=== PATIENT | male | born 1950 | race African-American/Black ===

== ENCOUNTER 2023-03-26 08:21 | Outpatient (REF) | payer OTHER, SELFPAY ==
[2023-03-26 11:32] LABS: MANUAL DIFF FLAG NO
[2023-03-26 11:41] LABS: Basophils Percent Auto 0.6 % (0-2); Eosinophils Absolute Auto 0.1 X10*3/uL (0.0-0.4); Eosinophils Percent Auto 1.7 % (0-4); Hematocrit 47.9 % (42.0-52.0); Hemoglobin 14.4 g/dl (14.0-18.0); Imm Gran Abs Auto 0.01 X10*3/uL (0.00-0.03); Imm Gran Pct Auto 0.1 % (0.0-0.4); Lymphocytes Absolute Auto 3.7 X10*3/uL (1.2-4.9); Lymphocytes Percent Auto 53.6 % (20-40); Mean Corpuscular HGB Conc 30.1 g/dl (31.0-36.0); Mean Corpuscular Hemoglobin 26.4 pg (27.0-33.0); Mean Corpuscular Volume 87.7 fL (80.0-98.0); Mean Platelet Volume 12.9 fL (9.4-12.4); Monocytes Absolute Auto 0.5 X10*3/uL (0.1-1.2); Monocytes Percent Auto 7.1 % (2-11); Neutrophils Absolute Auto 2.5 x10*3/uL (2.0-8.3); Neutrophils Percent Auto 36.9 % (45-73); Platelet Count 181 X10*3/uL (160-400); Red Blood Count 5.46 X10*6/uL (4.60-5.80); Red Cell Distribution Width 14.9 % (11.0-16.0); White Blood Count 6.9 X10*3/uL (4.8-10.8)
[2023-03-26 12:33] LABS: Microalbum/Creatinine Ratio Ur 21.1 ug/mg cr
[2023-03-26 13:16] LABS: Alanine Aminotransferase 13 U/L (0-40); Albumin Level 4.2 g/dL (3.5-5.0); Alkaline Phosphatase 56 U/L (39-117); Anion Gap 12 (12-20); Aspartate Amino Transferase 15 U/L (5-37); Bilirubin Total 0.9 mg/dL (0.0-1.0); Blood Urea Nitrogen 16 mg/dL (9-16); Calcium 9.7 mg/dL (8.4-10.2); Carbon Dioxide 31 mmol/L (22-29); Chloride 105 mmol/L (96-108); Cholesterol 141 mg/dL; Estimated Glomerular Filt Rate > 60; Glucose Fasting 117 mg/dL (60-99); HDL Cholesterol 46 mg/dL; LDL Cholesterol Calculated 78 mg/dl; Sodium 143 mmol/L (135-145); Total Protein 7.7 g/dL (6.5-8.0); Triglycerides 86 mg/dL
[2023-03-26 13:32] LABS: Vitamin D 25-OH Total 10.4 ng/mL (>30)
[2023-03-29 12:23] LABS: Free Prostate Spec Ag 1.4 ng/mL; Percent Free Prostate Spec Ag 29 % (calc) (>25); Prostate Specific Ag Total 4.9 ng/mL (< OR = 4.0)
== END 2023-03-26 08:22 | disposition home or self-care (01) ==
LOC: HO.HMGCLDS 08:21
PROVIDERS: PCP Internal Medicine; Visit Provider Internal Medicine
DX: Z12.5 Encounter for screening for malignant neoplasm of prostate (principal); D12.6 Benign neoplasm of colon, unspecified; E11.9 Type 2 diabetes mellitus without complications; E78.5 Hyperlipidemia, unspecified; I10 Essential (primary) hypertension; I25.10 Atherosclerotic heart disease of native coronary artery without angina pectoris; I25.2 Old myocardial infarction; Z95.5 Presence of coronary angioplasty implant and graft
CPT/HCPCS: 36415; 80053; 80061; 82043; 82306; 84153; 84154; 85025

== ENCOUNTER 2023-05-28 11:24 | Outpatient (AMB) | payer OTHER, SELFPAY ==
[2023-05-28 11:28] VITALS: BP 132/80; PULSE 58; O2SAT 98; BMI 27.2
--- NOTE | 2023-05-28 11:28 | MHC.PC.OV ---
Vital Signs 05/28/23 11:28 Height 6 ft 3 in Weight 218 lb BMI 27.2 BP 132/80 Blood Pressure Location Lt brachial Position Sitting Pulse 58 Pulse Source Pulse Oximeter Pulse Oximetry (%) 98 Oxygen Delivery Method Room Air Intake Visit Reasons: 3 months f/u labs Intake Note: patient is here today for a 3mo. f/u Allergies No Known Allergies Allergy (Verified 05/28/23 12:08) Medication List - Last Reconciled 05/28/23 by Alta Rausch MD aspirin 325 mg PO DAILY atorvastatin 80 mg PO DAILY carvedilol 25 mg PO BID 90 days diclofenac sodium 1% grams topical Jardiance (empagliflozin) 25 mg PO QAM NS lisinopril-hydrochlorothiazide 20-12.5 mg 2 tabs PO DAILY 90 days metformin 1,000 mg PO BID 90 days Tobacco use date assessed: 05/28/23 Fall risk assessment: No Falls in past year Last assessed Fall Risk: 05/28/23 Dental Screening Dental Screen Date: 05/28/23 Did you have a dental visit in the last 12 months?: No Did you have a dental problem in the last 6 months where you did not have access to dental care?: No Was dental information given to patient?: No HPI 3 months f/u labs HPI Details 72-year-old male with coronary artery disease status post stent to LAD, hypertension, diabetes mellitus, hyperlipidemia, here today for follow-up. He has been compliant with taking his medications, and tries to follow recommended diet. He has arthritis in his left knee, needs a prescription refill for his diclofenac gel, which he uses twice a day as needed. He is overdue to get his repeat colonoscopy, but checked with his insurance and states that he has had 250 dollar co-pay and patient states that he cannot afford it at present time. He is also overdue for a diabetes eye screen and for follow-up regarding his glaucoma, but has a hard time finding an eye doctor that takes his insurance. [facility] Medical History (Updated 06/10/23 @ 03:15 by Alta Rausch MD) Left knee pain Vitamin D deficiency Essential hypertension Diabetes mellitus Tubular adenoma of colon Hyperlipidemia Glaucoma History of positive PPD History of non-ST elevation myocardial infarction (NSTEMI) Coronary artery disease Surgical History History of heart artery stent Social History Housing: House Patient Tobacco Use Status: Never used Tobacco e-Cigarette/Vaping Use: Never Used Current occupational status: retired Cognitive needs: No Hearing needs: No Vision needs: Yes Questionnaire Thrive Questionnaire Date Thrive assessed: 12/26/22 AUDIT C Alcohol Use Questionnaire (AUDIT-C) 1. How often do you have a drink containing alcohol?: Monthly or less 2. How many drinks containing alcohol do you have on a typical day when you are drinking?: 1 or 2 Total Score: 1 SHELIA-7 AMB Questionnaire SHELIA-7 Date SHELIA - 7 assessed: 12/26/22 Source: Developed by Drs. Jeremi Abernathy, Mary Felipe, Devang Cooper and colleagues, with an educational jake from [employer]. Review of Systems Const Denies fatigue, Denies fever(s), Denies headache(s) and Denies weakness Eyes Reports blurry vision ENT Denies dizziness, Denies headache(s), Denies nasal congestion, Denies nasal discharge and Denies sore throat Card Denies chest pain, Denies lightheadedness, Denies palpitations and Denies dyspnea Resp Denies chest congestion, Denies cough, Denies dyspnea and Denies wheezing GI Denies abdominal pain, Denies change in bowel habits and Denies heartburn Denies hematuria, Denies difficulty urinating, Denies dysuria, Denies urinary frequency and Denies urinary urgency Musc Details: Gets recurrent left knee pain, with no joint swelling Skin/Breast Denies breast pain, Denies breast mass, Denies lesions and Denies rash Neuro Denies dizziness, Denies headache(s) and Denies weakness Psych Reports no additional complaints Endo Denies fatigue, Denies polydipsia, Denies polyuria and Denies palpitations Edward/Lymph Denies easy bruising Aller/Immun Denies seasonal rhinorrhea and Denies wheezing Physical exam (Primary Care) Vital Signs: Last Vital Signs Pulse 58 05/28/23 11:28 BP 132/80 05/28/23 11:28 Pulse Ox 98 05/28/23 11:28 Oxygen Delivery Method Room Air 05/28/23 11:28 BMI result Body Mass Index 27.2 Tobacco/Smoking Status: Tobacco use Status Tobacco use date assessed 05/28/23 05/28/23 11:30 Patient Tobacco Use Status Never used Tobacco 05/28/23 11:30 e-Cigarette/Vaping Use Never Used 05/28/23 11:30 Thrive Assessment: Date of Thrive Assessment Date Thrive assessed 12/26/22 05/28/23 11:30 Const Other: Alert oriented x3, no acute distress noted, ambulatory normal gait Orientation/consciousness: patient oriented x3 HENMT Head: Yes normocephalic Ears: hearing grossly normal bilaterally General nose exam: Normal external nose present Face and sinus: Yes face symmetric Mouth: Normal oral and palatal mucosa present, oropharynx normal and moist mucous membranes Eyes General: appearance normal, both eyes and all related structures Pupils: Equal, round and reactive pupils present EOM: EOMs intact bilaterally Neck Neck: Yes full ROM, Yes no lymphadenopathy and Yes supple Resp Auscultation: clear to auscultation bilaterally Cardio Other: S1-S2 present regular rate and rhythm GI Palpation (GI): Soft to palpation, nontender and no guarding Auscultation: normal bowel sounds Skin General skin exam: no rashes or lesions noted Neuro General: patient oriented x3, gait normal, moves all extremities and no focal motor deficits Cranial nerves: Yes Equal, round and reactive pupils present Extrem General: Yes full ROM, Yes no joint enlargement, Yes no pedal edema and Yes normal gait Psych Appearance: grossly normal and well kempt Mental Status: mental status grossly normal Affect: normal affect Thought process: Normal thought process present Thought content: Normal thought content present Immunizations pneumoc 20-jeanne conj-dip cr(PF) 0.5 mL IM syringe Performing Provider: Alta Rausch MD Performing Location: [facility] Administered by: Delma Davis CMA on 05/28/23 12:25 Dose Route Admin Location Dispensed Lot Number Expiration Date [employer] 0.5 mL IM Left Deltoid 0.5 mL [id number] 06/18/24 [id number] [employer]! VIS Given Date VIS Provided VIS Publication Date 05/28/23 Single Vaccine 21 Eligibility Eligibility Date Funding Source Not [facility] Eligible 05/28/23 Private Assessment and Plan Assessment & Plan (1) Essential hypertension: Code(s): I10 - Essential (primary) hypertension Plan: Blood pressure at goal of less than 130/80. Continue with carvedilol 25 mg 1 tablet twice a day and lisinopril HCTZ 20-12.5 2 tablets daily. Reinforced importance of following a low sodium diet, getting regular exercise, and lowering stress levels. (2) Diabetes mellitus: Code(s): E11.9 - Type 2 diabetes mellitus without complications Qualifiers: Diabetes mellitus complication status: without complication Diabetes mellitus extermination supervisor insulin use: without extermination supervisor use Diabetes mellitus type: type 2 Qualified Code(s): E11.9 - Type 2 diabetes mellitus without complications Plan: Ordered hemoglobin A1c, continue with Jardiance, and metformin. Will refer to Ophthalmology for his diabetes retinopathy screening and for follow-up of glucos. Prevnar 20 given today (3) History of non-ST elevation myocardial infarction (NSTEMI): Comment: 08/2014 received a bare metal stent in the proximal LAD Code(s): I25.2 - Old myocardial infarction Plan: Continue aspirin, stressed importance of getting hypertension, diabetes mellitus and dyslipidemia in good control with a goal LDL cholesterol less than 70 mg/dL (4) Coronary artery disease: Code(s): I25.10 - Atherosclerotic heart disease of [place] coronary artery without angina pectoris Qualifiers: Associated angina: without angina Coronary Disease-Associated Artery/Lesion type: [place] artery [place] vs. transplanted heart: [place] heart Qualified Code(s): I25.10 - Atherosclerotic heart disease of [place] coronary artery without angina pectoris Plan: Continued on aspirin 325 mg daily (5) Hyperlipidemia: Code(s): E78.5 - Hyperlipidemia, unspecified Qualifiers: Hyperlipidemia type: pure hypercholesterolemia Qualified Code(s): E78.00 - Pure hypercholesterolemia, unspecified Plan: Fasting lipid panel, comprehensive panel, hemoglobin A1c, and vitamin-D level ordered. continue atorvastatin 80 mg daily, in addition to adhering to healthy eating habits and getting regular exercise pain (6) Vitamin D deficiency: Code(s): E55.9 - Vitamin D deficiency, unspecified Plan: Will check vitamin-D level (7) Glaucoma: Code(s): H40.9 - Unspecified glaucoma Qualifiers: Glaucoma type: unspecified Laterality: unspecified laterality Qualified Code(s): H40.9 - Unspecified glaucoma Plan: Ophthalmology consult ordered for follow-up on his glaucoma and for diabetes retinopathy screening yearly (8) Left knee pain: Code(s): M25.562 - Pain in left knee Qualifiers: Chronicity: chronic Qualified Code(s): M25.562 - Pain in left knee; G89.29 - Other chronic pain Plan: Prescription sent for diclofenac gel 1% to apply to affected joint up to 4 times a day as needed . Prescription sent for diclofenac gel 1% massaged to affected joint 4 times a day as needed. Orders: Orders Vitamin D 25-OH Total 05/28/23 I10 - Essential (primary) hypertension, E11.9 - Type 2 diabetes mellitus without complications, I25.2 - Old myocardial infarction, I25.10 - Atherosclerotic heart disease of [place] coronary artery without angina pectoris, E78.5 - Hyperlipidemia, unspecified Comprehensive [place]. Panel Fast 05/28/23 I10 - Essential (primary) hypertension, E11.9 - Type 2 diabetes mellitus without complications, I25.2 - Old myocardial infarction, I25.10 - Atherosclerotic heart disease of [place] coronary artery without angina pectoris, E78.5 - Hyperlipidemia, unspecified Hemoglobin A1c 05/28/23 I10 - Essential (primary) hypertension, E11.9 - Type 2 diabetes mellitus without complications, I25.2 - Old myocardial infarction, I25.10 - Atherosclerotic heart disease of [place] coronary artery without angina pectoris, E78.5 - Hyperlipidemia, unspecified Lipid Panel 05/28/23 I10 - Essential (primary) hypertension, E11.9 - Type 2 diabetes mellitus without complications, I25.2 - Old myocardial infarction, I25.10 - Atherosclerotic heart disease of [place] coronary artery without angina pectoris, E78.5 - Hyperlipidemia, unspecified Microalbumin, Random (w Creat) 05/28/23 I10 - Essential (primary) hypertension, E11.9 - Type 2 diabetes mellitus without complications, I25.2 - Old myocardial infarction, I25.10 - Atherosclerotic heart disease of [place] coronary artery without angina pectoris, E78.5 - Hyperlipidemia, unspecified Pneumococcal 20 Immunization 05/28/23 Z23 - Encounter for immunization Referrals Ophthalmology Referral H40.9 - Unspecified glaucoma, E11.9 - Type 2 diabetes mellitus without complications Medications: Changed From diclofenac sodium 1% topical To diclofenac sodium 1% 4 grams topical QID PRN 100 grams 2RF knee pain Coding Level of Care Code Est Pt Level 4 (21083) Diagnoses Essential hypertension I10 Type 2 diabetes mellitus without complication, without long-term current use of insulin E11.9 Diabetes mellitus complication status: without complication Diabetes mellitus fpc insulin use: without fpc use Diabetes mellitus type: type 2 History of non-ST elevation myocardial infarction (NSTEMI) I25.2 Coronary artery disease involving [place] coronary artery of [place] heart without angina pectoris I25.10 Associated angina: without angina Coronary Disease-Associated Artery/Lesion type: [place] artery [place] vs. transplanted heart: [place] heart Pure hypercholesterolemia E78.00 Hyperlipidemia type: pure hypercholesterolemia Vitamin D deficiency E55.9 Glaucoma, unspecified glaucoma type, unspecified laterality H40.9 Glaucoma type: unspecified Laterality: unspecified laterality Chronic pain of left knee M25.562; G89.29 Chronicity: chronic
== END 2023-05-28 14:50 | disposition home or self-care (01) ==
PROVIDERS: PCP Internal Medicine; Visit Provider Internal Medicine
DX: Z23 Encounter for immunization (principal)
CPT/HCPCS: 90471; 90677; 99214

== ENCOUNTER 2023-05-28 12:28 | Outpatient (REF) | payer OTHER, SELFPAY ==
[2023-05-28 16:09] LABS: Estimated Average Glucose 163 mg/dL; Hemoglobin A1c % 7.3 % (<6.0)
== END 2023-05-28 12:29 | disposition home or self-care (01) ==
LOC: HO.HMGCLDS 12:28
PROVIDERS: PCP Internal Medicine; Visit Provider Internal Medicine
DX: I25.2 Old myocardial infarction (principal); I25.10 Atherosclerotic heart disease of native coronary artery without angina pectoris; I10 Essential (primary) hypertension; E78.5 Hyperlipidemia, unspecified; E11.9 Type 2 diabetes mellitus without complications
CPT/HCPCS: 36415; 80053; 80061; 82043; 82306; 82570; 83036

== ENCOUNTER 2024-03-16 08:18 | Outpatient (REF) | payer OTHER, SELFPAY ==
[2024-03-16 10:34] LABS: Estimated Average Glucose 180 mg/dL; Hemoglobin A1c % 7.9 % (<6.0)
[2024-03-16 10:44] LABS: Anion Gap 13 (12-20); Blood Urea Nitrogen 22 mg/dL (9-16); Calcium 10.2 mg/dL (8.4-10.2); Carbon Dioxide 27 mmol/L (22-29); Chloride 105 mmol/L (96-108); Cholesterol 137 mg/dL (<200); Estimated Glomerular Filt Rate > 60; Glucose Fasting 149 mg/dL (60-99); Potassium 4.6 mmol/L (3.3-5.1); Sodium 140 mmol/L (135-145)
[2024-03-16 10:45] LABS: Alanine Aminotransferase 12 U/L (0-40); Aspartate Amino Transferase 14 U/L (5-37); Triglycerides 75 mg/dL (<150)
[2024-03-16 10:56] LABS: PSA,Total (Free>4and<10) 5.54 ng/mL (0.00-4.00)
[2024-03-16 11:14] LABS: Creatinine Urine 60.44 mg/dL; Microalbum/Creatinine Ratio Ur 13.2 ug/mg cr (<30)
[2024-03-16 11:14] LABS: HDL Cholesterol 45 mg/dL (>40); LDL Cholesterol Calculated 77 mg/dL (<100)
[2024-03-17 13:34] LABS: Free Prostate Spec Ag 1.9 ng/mL; Percent Free Prostate Spec Ag 37 % (calc) (>25); Prostate Specific Ag Total 5.2 ng/mL (< OR = 4.0)
== END 2024-03-16 08:19 | disposition home or self-care (01) ==
LOC: HO.HMGCLDS 08:18
PROVIDERS: PCP Internal Medicine; Visit Provider Internal Medicine
DX: I10 Essential (primary) hypertension (principal); E11.9 Type 2 diabetes mellitus without complications; E78.5 Hyperlipidemia, unspecified; Z95.5 Presence of coronary angioplasty implant and graft; I25.2 Old myocardial infarction; I25.10 Atherosclerotic heart disease of native coronary artery without angina pectoris; Z12.5 Encounter for screening for malignant neoplasm of prostate
CPT/HCPCS: 36415; 80048; 80061; 82043; 82570; 83036; 84153; 84154; 84450; 84460

== ENCOUNTER 2024-03-19 10:25 | Outpatient (AMB) | payer OTHER, SELFPAY ==
--- NOTE | 2024-03-19 10:45 | MHC.PC.OV ---
Vital Signs 03/19/24 10:47 Height 6 ft 3 in Weight 210 lb BMI 26.2 BP 120/70 Blood Pressure Location Lt brachial Position Sitting Pulse 69 Pulse Source Pulse Oximeter Pulse Oximetry (%) 96 Oxygen Delivery Method Room Air Intake Visit Reasons: 11 month follow up Intake Note: Pt is here today for his f/u labs Allergies No Known Allergies Allergy (Verified 03/19/24 10:46) Medication List - Last Reconciled 03/19/24 by Alta Rausch MD aspirin 325 mg PO DAILY atorvastatin 80 mg PO DAILY carvedilol 25 mg PO BID 90 days diclofenac sodium 1% 4 grams topical QID PRN Jardiance (empagliflozin) 25 mg PO QAM NS lisinopril-hydrochlorothiazide 20-12.5 mg 2 tabs PO DAILY 90 days metformin 1,000 mg PO BID 90 days Tobacco use date assessed: 03/19/24 Fall risk assessment: No Falls in past year Last assessed Fall Risk: 03/19/24 Dental Screening Dental Screen Date: 03/19/24 Did you have a dental visit in the last 12 months?: No Did you have a dental problem in the last 6 months where you did not have access to dental care?: No Was dental information given to patient?: Patient declined HPI 11 month follow up HPI Details 73 year-old male with coronary artery disease status post stent to LAD, hypertension, diabetes mellitus, hyperlipidemia, here today for follow-up. Has been compliant with taking his medications,, but not so much with diet and does not have any regular exercise. Patient states that he is extremely busy taking care of his who has a lot of medical issues. He however does not have any complaints at present time. [facility] Medical History (Updated 03/19/24 @ 11:16 by Alta Rausch MD) Elevated PSA Diabetes mellitus with hyperglycemia, without long-term current use of insulin Left knee pain Vitamin D deficiency Essential hypertension Diabetes mellitus Tubular adenoma of colon Hyperlipidemia Glaucoma History of positive PPD History of non-ST elevation myocardial infarction (NSTEMI) Coronary artery disease Surgical History History of heart artery stent Social History Housing: House Patient Tobacco Use Status: Never used Tobacco e-Cigarette/Vaping Use: Never Used Current occupational status: retired Cognitive needs: No Hearing needs: No Vision needs: Yes Questionnaire PHQ-9 Over the last 2 weeks, how often have you been bothered by any of the following problems? 1. Little interest or pleasure in doing things: several days 2. Feeling down, depressed, or hopeless: not at all 3. Trouble falling or staying asleep, or sleeping too much: several days 4. Feeling tired or having little energy: several days 5. Poor appetite or overeating: not at all 6. Feeling bad about yourself - or that you are a failure or have let yourself or your family down: not at all 7. Trouble concentrating on things, such as reading the newspaper or watching television: not at all 8. Moving or speaking so slowly that other people could have noticed. Or the opposite - being so fidgety or restless that you have been moving around a lot more than usual: not at all 9. Thoughts that you would be better off or of hurting yourself in some way: not at all Total score: 3 Depression Screening Interpretation: Negative (Worried about who has a lot of medical issues) Depression Screening Done: Yes 76019 - PHQ-9 Billing: Yes Source: Developed by Drs. Jeremi Aebrnathy, Mary Felipe, Devang Cooper and colleagues, with an educational jake from [employer]. Thrive Questionnaire Date Thrive assessed: 03/19/24 I am a: Patient What is your living situation today?: I have a steady place to live Within the past 12 months, did the food you bought not last and you didn't have the money to get more?: Often true Within the past 12 months, did you worry whether your food would run out before you got money to buy more?: Often true Do you have trouble paying for medicines?: No Do you have trouble getting transportation to medical appointments?: Yes Do you have trouble paying your heating and electricity bill?: Yes Do you have trouble taking care of your child, family member or friend?: No Do you have trouble with day-to-day activities such as bathing, preparing meals, shopping, managing finances, etc.?: No Are you currently unemployed and looking for a job?: No Are you interested in more education?: No Please select the resources that you would like help with: Utilities Currently or been in a relationship where the following occur: No concerns reported THRIVE Score: 4 AUDIT C Alcohol Use Questionnaire (AUDIT-C) 1. How often do you have a drink containing alcohol?: 2-4 times a month 2. How many drinks containing alcohol do you have on a typical day when you are drinking?: 3 or 4 3. How often do you have six or more drinks on one occasion?: Less than monthly Total Score: 4 Score Reviewed/Action Taken: Yes (Advised to stop vodka intake) SHELIA-7 AMB Questionnaire SHELIA-7 Date SHELIA - 7 assessed: 03/19/24 Feeling nervous, anxious, or on edge: 1 = Several days Not being able to stop or control worryin = Several days Worrying too much about different things: 1 = Several days Trouble relaxin = Several days Being so restless that it is hard to sit still: 0 = Not at all Becoming easily annoyed or irritable: 0 = Not at all Feeling afraid as if something awful might happen: 0 = Not at all Total SHELIA-7 score (0-4 normal; 5-9 mild; 10-14 moderate; 15-21 severe): 4 Source: Developed by Drs. Jeremi Abernathy, Mary Felipe, Devang Cooper and colleagues, with an educational jake from [employer]. SHELIA-7 Assessment Billing SHELIA-7 Assessment Tool: SHELIA-7 Assessment 36145 Review of Systems Const Denies fatigue, Denies fever(s), Denies headache(s) and Denies weakness Eyes Reports blurry vision ENT Denies dizziness, Denies headache(s), Denies nasal congestion, Denies nasal discharge and Denies sore throat Card Denies chest pain, Denies lightheadedness, Denies palpitations and Denies dyspnea Resp Denies chest congestion, Denies cough, Denies dyspnea and Denies wheezing GI Denies abdominal pain, Denies change in bowel habits and Denies heartburn Denies hematuria, Denies difficulty urinating, Denies dysuria, Denies urinary frequency and Denies urinary urgency Musc Details: Gets recurrent left knee pain, with no joint swelling Skin/Breast Denies breast pain, Denies breast mass, Denies lesions and Denies rash Neuro Denies dizziness, Denies headache(s) and Denies weakness Psych Reports no additional complaints Endo Denies fatigue, Denies polydipsia, Denies polyuria and Denies palpitations Edward/Lymph Denies easy bruising Aller/Immun Denies seasonal rhinorrhea and Denies wheezing Physical exam (Primary Care) Vital Signs: Last Vital Signs Pulse 69 03/19/24 10:47 BP 120/70 03/19/24 10:47 Pulse Ox 96 03/19/24 10:47 Oxygen Delivery Method Room Air 03/19/24 10:47 BMI result Body Mass Index 26.2 Tobacco/Smoking Status: Tobacco use Status Tobacco use date assessed 03/19/24 03/19/24 10:47 Patient Tobacco Use Status Never used Tobacco 03/19/24 10:47 e-Cigarette/Vaping Use Never Used 03/19/24 10:47 PHQ-9: PHQ-9 Score PHQ-9: Total score 3 03/22/24 21:51 Depression Screening Interpretation: Negative (Worried about who has a lot of medical issues) Thrive Assessment: Date of Thrive Assessment Date Thrive assessed 03/19/24 03/19/24 10:50 Currently or been in a relationship where the following occur: No concerns reported Const Other: Alert oriented x3, no acute distress noted, ambulatory normal gait Orientation/consciousness: patient oriented x3 HENAK Head: Yes normocephalic General nose exam: Normal external nose present Face and sinus: Yes face symmetric Mouth: Normal oral and palatal mucosa present, oropharynx normal and moist mucous membranes Eyes General: appearance normal, both eyes and all related structures Pupils: Equal, round and reactive pupils present EOM: EOMs intact bilaterally Neck Neck: Yes full ROM, Yes no lymphadenopathy and Yes supple Resp Auscultation: clear to auscultation bilaterally Cardio Other: S1-S2 present regular rate and rhythm GI Palpation (GI): Soft to palpation, nontender and no guarding Auscultation: normal bowel sounds General: Yes no CVA tenderness Back/Spine/Pelvis Back: no CVA tenderness and No back tenderness Skin General skin exam: no rashes or lesions noted Neuro General: patient oriented x3, gait normal, moves all extremities and no focal motor deficits Cranial nerves: Yes Equal, round and reactive pupils present Extrem General: Yes full ROM, Yes no joint enlargement, Yes no pedal edema and Yes normal gait Psych Appearance: grossly normal and well kempt Mental Status: mental status grossly normal Affect: normal affect Thought process: Normal thought process present Thought content: Normal thought content present Results Reviewed Results Reviewed: Name: Vishnu Lees Age/Sex: 73/M : 1950 Unit#: [id number] Attend Dr: Alta Rausch MD Re03/16/24 Status: DEP REF Location: [facility] Disch: SPEC : [id number] JEFFREY: 03/16/24 STATUS: COMP REQ : [id number] RECD: 03/16/[address]: Alta Rausch MD COMP: 03/16/24 ENTERED: 03/16/[address]: ORDERED: Met Prof Fast, AST, ALT, Lipid Panel Test Result Flag Reference Sodium 140 135-145 mmol/L Potassium 4.6 3.3-5.1 mmol/L CL 105 96-108 mmol/L CO2 27 22-29 mmol/L Name: Vishnu Lees Age/Sex: 73/M : 1950 Unit#: [id number] Attend Dr: Alta Rausch MD Re03/16/24 Status: DEP REF Location: [facility] Disch: SPEC : [id number] JEFFREY: 03/16/24 STATUS: COMP REQ : [id number] RECD: 03/16/[address]: Alta Rausch MD COMP: 03/17/24 ENTERED: 03/16/[address]: ORDERED: PSA Free & Tot Test Result Flag Reference PSA Total 5.2 H < OR = 4.0 ng/mL PSA Free % 37 >25 % (calc) PSA(ng/mL) Free PSA(%) Estimated(x) Probability of Cancer(as%) 0-2.5 (*) Approx. 1 2.6-4.0(1) 0-27(2) 24(3) 4.1-10(4) 0-10 56 11-15 28 16-20 20 21-25 16 >or =26 8 >10(+) N/A >50 References:(1)Leo et al.:Urology 60: 469-474 (2002) (2)Leo et al.:J.Urol 168: 922-925 (2001) Free PSA(%) Sensitivity(%) Specificity(%) < or = 25 85 19 < or = 30 93 9 (3)Catalona et al.:IVA 277: 7064-1225 (1996) (4)Catalona et al.:IVA 279: 4540-6735 (1997) (x)These estimates vary with age, ethnicity, family history and JOSE results. (*)The diagnostic usefulness of % Free PSA has not been established in patients with total PSA below 2.6 ng/mL (+)In men with PSA above 10 ng/mL, prostate cancer risk is determined by total PSA alone. The Total PSA value from this assay system is standardized against the equimolar PSA standard. The test result will be approximately 20% higher when compared to the WHO-standardized Total PSA (Siemens assay). Comparison of serial PSA results should be interpreted with this fact in mind. PSA was performed using the Richard Edilson Immunoassay method. Values obtained from different assay methods cannot be used interchangeably. PSA levels, regardless of value, should not be interpreted as absolute evidence of the presence or absence of disease. THIS TEST WAS PERFORMED AT: [id number] [address] [place] [id number] ISA MARISCAL MD Free PSA 1.9 ng/mL Gap 13 12-20 BUN 22 H 9-16 mg/dL Creat 1.11 0.5-1.4 mg/dL EGFR > 60 NOTE: For -[place] individuals, multiply the result by 1.210. Chronic Kidney Disease: Estimated GFR < 60 mL/min/1.73m2 Severe Kidney Disease: Estimated GFR < 15 mL/min/1.73m2 FBS 149 H 60-99 mg/dL A fasting glucose of 126 mg/dl or greater on more than one occasion is considered diagnostic of diabetes. CA 10.2 8.4-10.2 mg/dL AST (GOT) 14 5-37 U/L ALT (GPT) 12 0-40 U/L Triglyceride 75 <150 mg/dL Desirable Triglyceride: less than 150 mg/dL Borderline High Triglyceride 150-199 mg/dL High Triglyceride: 200-499 mg/dL Very High Triglyceride: greater than or equal to 5OO mg/dL Cholesterol 137 <200 mg/dL Desirable Cholesterol: less than 200 mg/dL Borderline High Cholesterol: 200-239 mg/dL High Cholesterol: greater than 239 mg/dL LDL Calculated 77 <100 mg/dL Desirable LDL: less than 100 mg/dL Near Optimal/Above Optimal LDL: 110-129 mg/dL Borderline High LDL: 130-159 mg/dL High LDL: 160-189 mg/dL Very High LDL: greater than or equal to 190 mg/dL HDL 45 >40 mg/dL Desirable HDL: greater than 40 mg/dL Note: This HDL assay may give artificially low results in patients with liver disease. Laboratory Tests 03/16/24 08:22 Hemoglobin A1c % 7.9 H Assessment and Plan Assessment & Plan (1) Coronary artery disease: Code(s): I25.10 - Atherosclerotic heart disease of [place] coronary artery without angina pectoris Qualifiers: Associated angina: without angina Coronary Disease-Associated Artery/Lesion type: [place] artery [place] vs. transplanted heart: [place] heart Qualified Code(s): I25.10 - Atherosclerotic heart disease of [place] coronary artery without angina pectoris Plan: Continue aspirin 81 mg daily, and carvedilol 25 mg 1 tablet twice a day. Stressed importance of following a healthy diet, absence from alcohol and strongly advised, and getting regular exercise. (2) Hyperlipidemia: Code(s): E78.5 - Hyperlipidemia, unspecified Qualifiers: Hyperlipidemia type: pure hypercholesterolemia Qualified Code(s): E78.00 - Pure hypercholesterolemia, unspecified Plan: Reviewed recent fasting lipid profile with patient with levels at goal . Continue atorvastatin 80 mg daily , in addition to adherence to low-cholesterol diet and regular exercise, at least 30 minutes 3 to 4 times a week. Advised patient to make healthy food choices, eat more fruits, vegetables, whole grains, wild caught fish and low-fat dairy. Limit amount of meat and fried or fatty food products, as well as processed foods and fast foods. Follow-up scheduled with repeat fasting lipid panel in 3 months. (3) Essential hypertension: Code(s): I10 - Essential (primary) hypertension Plan: Blood pressure at goal of less than 130/80. Continue with current medication. Reinforced importance of following a low sodium diet, getting regular exercise, and lowering stress levels. (4) Diabetes mellitus with hyperglycemia, without long-term current use of insulin: Code(s): E11.65 - Type 2 diabetes mellitus with hyperglycemia Plan: Recent lab results reviewed with patient, with sugar and hemoglobin A1c stable not at goal. Continue on metformin a 1000 mg 1 tablet twice a day, Jardiance 25 mg daily in a.m., stressed importance of taking medicines as directed. continue to check fasting blood sugar at home, maintain log and bring to next appointment for review. Reinforced diabetic diet and regular exercise with patient. Counseled regarding importance of yearly diabetes retinopathy screening. Patient advised to inspect feet daily, for any signs of injury, callus or infection. Compliance with diet and regular exercise again stressed. Blood pressure goal is less than 130/80, goal LDL is less than 100 and goal hemoglobin A1c is less than 7% follow-up appointment made in-3--months, after fasting labs done. (5) Elevated PSA: Code(s): R97.20 - Elevated prostate specific antigen [PSA] Plan: Urology consult obtain Orders: Orders Aspartate Amino Transferase 05/24/24 E11.65 - Type 2 diabetes mellitus with hyperglycemia, E78.00 - Pure hypercholesterolemia, unspecified, I10 - Essential (primary) hypertension, I25.10 - Atherosclerotic heart disease of [place] coronary artery without angina pectoris Basic Metabolic Panel Fasting 05/24/24 E11.65 - Type 2 diabetes mellitus with hyperglycemia, E78.00 - Pure hypercholesterolemia, unspecified, I10 - Essential (primary) hypertension, I25.10 - Atherosclerotic heart disease of [place] coronary artery without angina pectoris Hemoglobin A1c 05/24/24 E11.65 - Type 2 diabetes mellitus with hyperglycemia, E78.00 - Pure hypercholesterolemia, unspecified, I10 - Essential (primary) hypertension, I25.10 - Atherosclerotic heart disease of [place] coronary artery without angina pectoris Alanine Aminotransferase 05/24/24 E11.65 - Type 2 diabetes mellitus with hyperglycemia, E78.00 - Pure hypercholesterolemia, unspecified, I10 - Essential (primary) hypertension, I25.10 - Atherosclerotic heart disease of [place] coronary artery without angina pectoris Lipid Panel 05/24/24 E11.65 - Type 2 diabetes mellitus with hyperglycemia, E78.00 - Pure hypercholesterolemia, unspecified, I10 - Essential (primary) hypertension, I25.10 - Atherosclerotic heart disease of [place] coronary artery without angina pectoris Referrals Urology Referral R97.20 - Elevated prostate specific antigen [PSA] Coding Level of Care Code Est Pt Level 4 (15029) Complex EM visit Add On G2211 Diagnoses Coronary artery disease involving [place] coronary artery of [place] heart without angina pectoris I25.10 Associated angina: without angina Coronary Disease-Associated Artery/Lesion type: [place] artery [place] vs. transplanted heart: [place] heart Pure hypercholesterolemia E78.00 Hyperlipidemia type: pure hypercholesterolemia Essential hypertension I10 Diabetes mellitus with hyperglycemia, without long-term current use of insulin E11.65 Elevated PSA R97.20 Additional Codes SHELIA-7 Assessment Billing - SHELIA-7 Assessment Tool: SHELIA-7 Assessment 97472 ([id number])
[2024-03-19 10:47] VITALS: BP 120/70; PULSE 69; O2SAT 96; BMI 26.2
== END 2024-03-19 11:15 | disposition home or self-care (01) ==
PROVIDERS: PCP Internal Medicine; Visit Provider Internal Medicine
DX: I25.10 Atherosclerotic heart disease of native coronary artery without angina pectoris (principal); E11.65 Type 2 diabetes mellitus with hyperglycemia; E78.00 Pure hypercholesterolemia, unspecified; I10 Essential (primary) hypertension; R97.20 Elevated prostate specific antigen [PSA]
CPT/HCPCS: 99214; G2211

== ENCOUNTER 2024-08-24 08:03 | Outpatient (REF) | payer OTHER, MEDICARE, SELFPAY ==
[2024-08-24 11:27] LABS: Microalbum/Creatinine Ratio Ur 54.2 ug/mg cr (<30)
[2024-08-25 10:49] LABS: Free Prostate Spec Ag 2.6 ng/mL; Percent Free Prostate Spec Ag 43 % (calc) (>25); Prostate Specific Ag Total 6.1 ng/mL (< OR = 4.0)
== END 2024-08-24 08:04 | disposition home or self-care (01) ==
LOC: HO.HMGCLDS 08:03
PROVIDERS: PCP Internal Medicine; Visit Provider Internal Medicine
DX: E11.65 Type 2 diabetes mellitus with hyperglycemia (principal); I10 Essential (primary) hypertension; E78.00 Pure hypercholesterolemia, unspecified; R97.20 Elevated prostate specific antigen [PSA]; Z12.5 Encounter for screening for malignant neoplasm of prostate
CPT/HCPCS: 36415; 82043; 82570; 83036; 84153; 84154

== ENCOUNTER 2024-08-24 08:03 | Outpatient (AMB) | payer OTHER, MEDICARE, SELFPAY ==
[2024-08-24 08:38] VITALS: BP 124/74; PULSE 69; O2SAT 97; BMI 27.6
--- NOTE | 2024-08-24 08:38 | MHC.PC.OV ---
Vital Signs 08/24/24 08:38 Height 6 ft 3 in Weight 221 lb BMI 27.6 BP 124/74 Blood Pressure Location Lt brachial Position Sitting Pulse 69 Pulse Source Pulse Oximeter Pulse Oximetry (%) 97 Oxygen Delivery Method Room Air Intake Visit Reasons: med review Intake Note: Pt is here today for his f/u DM Allergies No Known Allergies Allergy (Verified 08/24/24 09:02) Medication List - Last Reconciled 08/24/24 by Alta Rausch MD aspirin 325 mg PO DAILY atorvastatin 80 mg PO DAILY carvedilol 25 mg PO BID 90 days Jardiance (empagliflozin) 25 mg PO QAM NS lisinopril-hydrochlorothiazide 20-12.5 mg 2 tabs PO DAILY 90 days metformin 1,000 mg PO BID 90 days Tobacco use date assessed: 08/24/24 Fall risk assessment: No Falls in past year Last assessed Fall Risk: 08/24/24 Dental Screening Dental Screen Date: 08/24/24 Did you have a dental visit in the last 12 months?: No Was dental information given to patient?: Patient declined HPI med review HPI Details 73 year-old male with coronary artery disease status post stent to LAD, hypertension, diabetes mellitus, hyperlipidemia, here today for follow-up. Patient states that he has been noncompliant with his diet, and has not been taking his medications on a regular basis this past few months. He also has been sedentary most of the time. Hemoglobin A1c today is at 8.3% He states that he made a resolution for the new year to cut back on his alcohol intake, now drinks at least a beverly 2 to 3 times a week, instead of daily and has stopped drinking Nips . Blood pressure has been stable controlled on present treatment currently taking carvedilol 25 mg 1 tablet twice a day and lisinopril HCTZ 12 T-12.5 mg 2 tablets daily. He has not been seen for cardiology follow-up since his stent placement in 2014. Patient was previously being seen by Dr. Ramos and Dr. Tejas Turk in [facility] cardiology,, but has been lost to follow-up. He denies having any chest pain, no shortness of breath, no lightheadedness or headaches . Continues to take 325 mg aspirin daily [facility] Medical History Elevated PSA Diabetes mellitus with hyperglycemia, without long-term current use of insulin Left knee pain Vitamin D deficiency Essential hypertension Diabetes mellitus Tubular adenoma of colon Hyperlipidemia Glaucoma History of positive PPD History of non-ST elevation myocardial infarction (NSTEMI) Coronary artery disease Surgical History History of heart artery stent Social History Housing: House Patient Tobacco Use Status: Never used Tobacco e-Cigarette/Vaping Use: Never Used Current occupational status: retired Cognitive needs: No Hearing needs: No Vision needs: Yes Questionnaire PHQ-9 Over the last 2 weeks, how often have you been bothered by any of the following problems? 1. Little interest or pleasure in doing things: not at all 2. Feeling down, depressed, or hopeless: not at all 3. Trouble falling or staying asleep, or sleeping too much: not at all 4. Feeling tired or having little energy: several days 5. Poor appetite or overeating: not at all 6. Feeling bad about yourself - or that you are a failure or have let yourself or your family down: not at all 7. Trouble concentrating on things, such as reading the newspaper or watching television: not at all 8. Moving or speaking so slowly that other people could have noticed. Or the opposite - being so fidgety or restless that you have been moving around a lot more than usual: not at all 9. Thoughts that you would be better off or of hurting yourself in some way: not at all Total score: 1 Depression Screening Interpretation: Negative (Worried about who has a lot of medical issues) Depression Screening Done: Yes Source: Developed by Drs. Jeremi Abernathy, Mary Felipe, Devang Cooper and colleagues, with an educational jake from [employer]. Thrive Questionnaire Date Thrive assessed: 08/24/24 I am a: Patient What is your living situation today?: I have a steady place to live Within the past 12 months, did the food you bought not last and you didn't have the money to get more?: Often true Within the past 12 months, did you worry whether your food would run out before you got money to buy more?: Often true Do you have trouble paying for medicines?: No Do you have trouble getting transportation to medical appointments?: No Do you have trouble paying your heating and electricity bill?: Yes Do you have trouble taking care of your child, family member or friend?: No Do you have trouble with day-to-day activities such as bathing, preparing meals, shopping, managing finances, etc.?: No Are you currently unemployed and looking for a job?: No Are you interested in more education?: No Please select the resources that you would like help with: Food Currently or been in a relationship where the following occur: No concerns reported THRIVE Score: 3 AUDIT C Alcohol Use Questionnaire (AUDIT-C) 1. How often do you have a drink containing alcohol?: 2-4 times a month 2. How many drinks containing alcohol do you have on a typical day when you are drinking?: 3 or 4 3. How often do you have six or more drinks on one occasion?: Less than monthly Total Score: 4 SHELIA-7 AMB Questionnaire SHELIA-7 Date SHELIA - 7 assessed: 08/24/24 Feeling nervous, anxious, or on edge: 0 = Not at all Not being able to stop or control worryin = Not at all Worrying too much about different things: 0 = Not at all Trouble relaxin = Not at all Being so restless that it is hard to sit still: 0 = Not at all Becoming easily annoyed or irritable: 0 = Not at all Feeling afraid as if something awful might happen: 0 = Not at all Total SHELIA-7 score (0-4 normal; 5-9 mild; 10-14 moderate; 15-21 severe): 0 Source: Developed by Drs. Jeremi Abernathy, Mary Felipe, Devang Cooper and colleagues, with an educational jake from [employer]. Review of Systems Const Denies fatigue, Denies fever(s), Denies headache(s) and Denies weakness Eyes Reports blurry vision ENT Denies dizziness, Denies headache(s), Denies nasal congestion, Denies nasal discharge and Denies sore throat Card Denies chest pain, Denies lightheadedness, Denies palpitations and Denies dyspnea Resp Denies chest congestion, Denies cough, Denies dyspnea and Denies wheezing GI Denies abdominal pain, Denies change in bowel habits and Denies heartburn Denies hematuria, Denies difficulty urinating, Denies dysuria, Denies urinary frequency and Denies urinary urgency Musc Details: Gets recurrent left knee pain, with no joint swelling Skin/Breast Denies breast pain, Denies breast mass, Denies lesions and Denies rash Neuro Denies dizziness, Denies headache(s) and Denies weakness Psych Reports no additional complaints Endo Denies fatigue, Denies polydipsia, Denies polyuria and Denies palpitations Edward/Lymph Denies easy bruising Aller/Immun Denies seasonal rhinorrhea and Denies wheezing Physical exam (Primary Care) Vital Signs: Last Vital Signs Pulse 69 08/24/24 08:38 BP 124/74 08/24/24 08:38 Pulse Ox 97 08/24/24 08:38 Oxygen Delivery Method Room Air 08/24/24 08:38 BMI result Body Mass Index 27.6 Tobacco/Smoking Status: Tobacco use Status Tobacco use date assessed 08/24/24 08/24/24 08:41 Patient Tobacco Use Status Never used Tobacco 08/24/24 08:41 e-Cigarette/Vaping Use Never Used 08/24/24 08:41 PHQ-9: PHQ-9 Score PHQ-9: Total score 1 08/24/24 16:57 Depression Screening Interpretation: Negative (Worried about who has a lot of medical issues) Thrive Assessment: Date of Thrive Assessment Date Thrive assessed 08/24/24 08/24/24 08:41 Currently or been in a relationship where the following occur: No concerns reported Const Other: Alert oriented x3, no acute distress noted, ambulatory normal gait Orientation/consciousness: patient oriented x3 [facility] Head: Yes normocephalic General nose exam: Normal external nose present Face and sinus: Yes face symmetric Mouth: Normal oral and palatal mucosa present, oropharynx normal and moist mucous membranes Eyes General: appearance normal, both eyes and all related structures Pupils: Equal, round and reactive pupils present EOM: EOMs intact bilaterally Neck Neck: Yes full ROM, Yes no lymphadenopathy and Yes supple Resp Auscultation: clear to auscultation bilaterally Cardio Other: S1-S2 present regular rate and rhythm GI Palpation (GI): Soft to palpation, nontender and no guarding Auscultation: normal bowel sounds General: Yes no CVA tenderness Back/Spine/Pelvis Back: no CVA tenderness and No back tenderness Skin General skin exam: no rashes or lesions noted Neuro General: patient oriented x3, gait normal, moves all extremities and no focal motor deficits Cranial nerves: Yes Equal, round and reactive pupils present Extrem General: Yes full ROM, Yes no joint enlargement, Yes no pedal edema and Yes normal gait Psych Appearance: grossly normal and well kempt Mental Status: mental status grossly normal Affect: normal affect Thought process: Normal thought process present Thought content: Normal thought content present Results AMB Hemoglobin A1c AMB Hemoglobin A1c 8.3 % Last Edit by Mimi Wilson CMA on 08/24/24 09:01 Results Reviewed Results Reviewed: Laboratory Last Values Hgb A1c (Clinic) 8.3 % (4.0-6.0) H 08/24/24 08:54 Coding Level of Care Code Est Pt Level 4 (34004) Complex EM visit Add On G2211 Diagnoses Pure hypercholesterolemia E78.00 Hyperlipidemia type: pure hypercholesterolemia Essential hypertension I10 Diabetes mellitus with hyperglycemia, without long-term current use of insulin E11.65 Coronary artery disease involving mohegan coronary artery of mohegan heart without angina pectoris I25.10 Associated angina: without angina Coronary Disease-Associated Artery/Lesion type: mohegan artery [place] vs. transplanted heart: mohegan heart History of non-ST elevation myocardial infarction (NSTEMI) I25.2 History of heart artery stent Z95.5 Assessment & Plan Assessment & Plan (1) Hyperlipidemia: Code(s): E78.5 - Hyperlipidemia, unspecified Category: Medical Qualifiers: Hyperlipidemia type: pure hypercholesterolemia Qualified Code(s): E78.00 - Pure hypercholesterolemia, unspecified Plan: Continued on atorvastatin 80 mg daily, fasting lipids ordered today (2) Essential hypertension: Code(s): I10 - Essential (primary) hypertension Category: Medical Plan: Blood pressure at goal of less than 130/80. Continue with current medication. Reinforced importance of following a low sodium diet, getting regular exercise, and lowering stress levels. (3) Diabetes mellitus with hyperglycemia, without long-term current use of insulin: Code(s): E11.65 - Type 2 diabetes mellitus with hyperglycemia Category: Medical Plan: Refill prescription for Jardiance and metformin reinforced importance of taking medications daily as directed, and adherence to diabetic diet and getting regular exercise stressed. Advised to strongly cut back on his alcohol intake or abstain altogether. (4) Coronary artery disease: Code(s): I25.10 - Atherosclerotic heart disease of mohegan coronary artery without angina pectoris Category: Medical Qualifiers: Associated angina: without angina Coronary Disease-Associated Artery/Lesion type: mohegan artery [place] vs. transplanted heart: mohegan heart Qualified Code(s): I25.10 - Atherosclerotic heart disease of mohegan coronary artery without angina pectoris Plan: Reinforced importance of getting good control of his diabetes, lipids and blood pressure. Continued on aspirin 325 mg daily referred to cardiology [place] [facility] [place] (5) History of non-ST elevation myocardial infarction (NSTEMI): Comment: 08/2014 received a bare metal stent in the proximal LAD Code(s): I25.2 - Old myocardial infarction Category: Medical Plan: Cardiology referral ordered for follow-up (6) History of heart artery stent: Comment: 09/07/2014 bare metal stent to LAD done by Dr. Ramos Code(s): Z95.5 - Presence of coronary angioplasty implant and graft Category: Surgical Plan: Cardiology referral ordered Orders: Orders AMB Hemoglobin A1c Today E11.65 - Type 2 diabetes mellitus with hyperglycemia PSA,Total (Free>4and<10) Today R97.20 - Elevated prostate specific antigen [PSA] Microalbumin, Random (w Creat) Today E11.65 - Type 2 diabetes mellitus with hyperglycemia, E78.00 - Pure hypercholesterolemia, unspecified, I10 - Essential (primary) hypertension Referrals Cardiology Referral I25.10 - Atherosclerotic heart disease of mohegan coronary artery without angina pectoris, I25.2 - Old myocardial infarction, Z95.5 - Presence of coronary angioplasty implant and graft Medications: New aspirin 325 mg PO DAILY 90 tabs 0RF Refilled Jardiance (empagliflozin) 25 mg PO QAM 90 tabs 1RF NS lisinopril-hydrochlorothiazide 20-12.5 mg 2 tabs PO DAILY 90 days 180 tabs 1RF I10 - Essential (primary) hypertension atorvastatin 80 mg PO DAILY 90 tabs 2RF E11.9 - Type 2 diabetes mellitus without complications, E78.5 - Hyperlipidemia, unspecified, I10 - Essential (primary) hypertension, I25.10 - Atherosclerotic heart disease of mohegan coronary artery without angina pectoris, I25.2 - Old myocardial infarction, Z95.5 - Presence of coronary angioplasty implant and graft carvedilol 25 mg PO BID 90 days 180 tabs 1RF I10 - Essential (primary) hypertension
== END 2024-08-24 09:28 | disposition home or self-care (01) ==
PROVIDERS: PCP Internal Medicine; Visit Provider Internal Medicine
DX: E78.00 Pure hypercholesterolemia, unspecified (principal); I10 Essential (primary) hypertension; E11.65 Type 2 diabetes mellitus with hyperglycemia; I25.10 Atherosclerotic heart disease of native coronary artery without angina pectoris; I25.2 Old myocardial infarction; Z95.5 Presence of coronary angioplasty implant and graft

== ENCOUNTER 2024-11-25 07:42 | Outpatient (AMB) | payer MEDICARE, SELFPAY ==
--- OUTSIDE RECORDS SUMMARY | 2024-11-25 07:46 | XMS_ITS | Clinical Summary ---
Author Organization [facility] Address [address] [place] [address] Care Team Providers Care [employer] Supervisor Name Role Phone Unavailable Primary Care Provider Unavailabl e Social History Tobacco Use Types Packs/Day Years Used Date Smoking Tobacco: Never Assessed Sex and Gender Information Value Date Recorded Sex Assigned at Not on file Legal Sex Male 10:36 AM EST Gender Identity Not on file Sexual Orientation Not on file Plan of Treatment Health Maintenance Due Date Last Done Comments DTaP,Tdap,and Td Vaccines (1 - Tdap) 11/12/1971 Pneumococcal Vaccine: 50+ Ye ars (1 of 1 - PCV) 2002 Zoster Vaccines (1 of 2) 2002 COVID-19 Vaccine ( - 2023-2 5 season) 2024 Influenza Vaccine (Season Ended) 2025 RSV Immunization Adult Patie nts (1 - 1-dose 75+ series) 11/12/2027 HIB Vaccines Aged Out No longer eligi ble based on patient's age to complete this topic HPV Vaccines Aged Out No longer eligi ble based on patient's age to complete this topic Hepatitis A Vaccines Aged Out No long er eligible based on patient's age to complete this topic Hepatitis B Vaccines Aged Out No long er eligible based on patient's age to complete this topic IPV Vaccines Aged Out No longer eligi ble based on patient's age to complete this topic MMR Vaccines Aged Out No longer eligi ble based on patient's age to complete this topic Meningococcal ACWY Vaccine Aged Out N o longer eligible based on patient's age to complete this topic Meningococcal B Vaccine Aged Out No l onger eligible based on patient's age to complete this topic RSV Immunization Patients Un bennett 20 months Aged Out No longer eligible b ased on patient's age to complete this topic Varicella Vaccines Aged Out No longer eligible based on patient's age to complete this topic
[2024-11-25 08:06] VITALS: BP 120/68; PULSE 66; RESP 16; TEMP 36.8; O2SAT 96; BMI 27.1
--- NOTE | 2024-11-25 08:06 | A.OFFPC_ITS ---
Vital Signs 11/25/24 08:06 Height 6 ft 3 in Weight 217 lb BMI 27.1 BP 120/68 Blood Pressure Location Rt brachial Position Sitting Respiration 16 Pulse 66 Pulse Source Pulse Oximeter Temp 98.2 F Temp Source Oral Pulse Oximetry (%) 96 Oxygen Delivery Method Room Air Intake Visit Reasons: 3m follow up Intake Note: Pt is here today for his 3mo. f/u Allergies No Known Allergies Allergy (Verified 11/25/24 08:15) Medication List - Last Reconciled 11/25/24 by Alta Rausch MD aspirin 325 mg PO DAILY atorvastatin 80 mg PO DAILY carvedilol 25 mg PO BID 90 days Jardiance (empagliflozin) 25 mg PO QAM NS lisinopril-hydrochlorothiazide 20-12.5 mg 2 tabs PO DAILY 90 days metformin 1,000 mg PO BID 90 days Tobacco use date assessed: 11/25/24 Fall risk assessment: No Falls in past year Last assessed Fall Risk: 11/25/24 Dental Screening Dental Screen Date: 11/25/24 Did you have a dental visit in the last 12 months?: No Did you have a dental problem in the last 6 months where you did not have access to dental care?: No Was dental information given to patient?: No HPI 3m follow up HPI Details Old male with history of coronary artery disease , NSTEMI cardiac stent in place, diabetes mellitus, dyslipidemia and hypertension, here today for his follow-up. He is currently on metformin and Jardiance, compliant with taking his medications. He is also on atorvastatin for his hyperlipidemia and on carvedilol for and lisinopril hydrochlorothiazide for his hypertension with blood pressure stable and controlled on present treatment. Hemoglobin A1c however today is at 8.7%. Patient states that he started big pastries, and has been eating them, has not been compliant with the diet. He has glaucoma, currently not on any medication, overdue for his eye exam. Patient is still looking for an eye doctor that will take his insurance. Has elevated PSA, complains of occasional nocturia but no decrease in urinary stream reported. He is overdue for his repeat colonoscopy supposed to have it done in 2022 as he had a tubular adenoma from the pull colon removed in 2018 colonoscopy done at [facility] patient however does not want to get referred at present time. [facility] Medical History (Updated 11/25/24 @ 08:36 by Alta Rausch MD) Elevated PSA Diabetes mellitus with hyperglycemia, without long-term current use of insulin Vitamin D deficiency Essential hypertension Tubular adenoma of colon Hyperlipidemia Glaucoma History of positive PPD History of non-ST elevation myocardial infarction (NSTEMI) Coronary artery disease Surgical History History of heart artery stent Social History (Updated 11/25/24 @ 08:33 by Alta Rausch MD) Housing: House Patient Tobacco Use Status: Never used Tobacco e-Cigarette/Vaping Use: Never Used Substance Use Type: Marijuana Current occupational status: retired Cognitive needs: No Hearing needs: No Vision needs: Yes Questionnaire Thrive Questionnaire Date Thrive assessed: 08/24/24 I am a: Patient What is your living situation today?: I have a steady place to live Within the past 12 months, did the food you bought not last and you didn't have the money to get more?: Often true Within the past 12 months, did you worry whether your food would run out before you got money to buy more?: Often true Do you have trouble paying for medicines?: No Do you have trouble getting transportation to medical appointments?: No Do you have trouble paying your heating and electricity bill?: Yes Do you have trouble taking care of your child, family member or friend?: No Do you have trouble with day-to-day activities such as bathing, preparing meals, shopping, managing finances, etc.?: No Are you currently unemployed and looking for a job?: No Are you interested in more education?: No Please select the resources that you would like help with: Food Currently or been in a relationship where the following occur: No concerns reported THRIVE Score: 3 SHELIA-7 AMB Questionnaire SHELIA-7 Date SHELIA - 7 assessed: 08/24/24 Source: Developed by Drs. Jeremi Abernathy, Mary Felipe, Devang Cooper and colleagues, with an educational jake from [employer]. Review of Systems Const Denies fatigue, Denies fever(s), Denies headache(s) and Denies weakness Eyes Details: Overdue for his diabetes retinopathy screening Reports blurry vision ENT Denies dizziness, Denies headache(s), Denies nasal congestion, Denies nasal disc harge and Denies sore throat Card Denies chest pain, Denies lightheadedness, Denies palpitations and Denies dyspnea Resp Denies chest congestion, Denies cough, Denies dyspnea and Denies wheezing GI Details: History of tubular adenoma on last colonoscopy done in 2018 at [facility], supposed to get a repeat colonoscopy in 2022, but patient declines referral for a repeat screening, states will think about it Denies abdominal pain, Denies change in bowel habits and Denies heartburn Details: Has nocturia Denies hematuria, Denies difficulty urinating, Denies dysuria and Denies urinary urgency Musc Reports no additional complaints Skin/Breast Denies breast pain, Denies breast mass, Denies lesions and Denies rash Neuro Denies dizziness, Denies headache(s) and Denies weakness Psych Reports no additional complaints Endo Denies fatigue, Denies polydipsia, Denies polyuria and Denies palpitations Edward/Lymph Denies easy bruising Aller/Immun Denies seasonal rhinorrhea and Denies wheezing Physical exam (Primary Care) Vital Signs: Last Vital Signs Temp 98.2 F 11/25/24 08:06 Pulse 66 11/25/24 08:06 Resp 16 11/25/24 08:06 BP 120/68 11/25/24 08:06 Pulse Ox 96 11/25/24 08:06 Oxygen Delivery Method Room Air 11/25/24 08:06 BMI result Body Mass Index 27.1 Tobacco/Smoking Status: Tobacco use Status Tobacco use date assessed 11/25/24 11/25/24 08:11 Patient Tobacco Use Status Never used Tobacco 11/25/24 08:11 e-Cigarette/Vaping Use Never Used 11/25/24 08:11 Thrive Assessment: Date of Thrive Assessment Date Thrive assessed 08/24/24 11/25/24 08:11 Currently or been in a relationship where the following occur: No concerns reported Const Other: Alert oriented x3, no acute distress noted, ambulatory normal gait Orientation/consciousness: patient oriented x3 [facility] Head: Yes normocephalic General nose exam: Normal external nose present Face and sinus: Yes face symmetric Mouth: Normal oral and palatal mucosa present, oropharynx normal and moist mucous membranes Eyes General: appearance normal, both eyes and all related structures Pupils: Equal, round and reactive pupils present EOM: EOMs intact bilaterally Neck Neck: Yes full ROM, Yes no lymphadenopathy and Yes supple Chest Chest palpation & inspection: normal inspection of the chest Resp Auscultation: clear to auscultation bilaterally Cardio Other: S1-S2 present regular rate and rhythm GI Palpation (GI): Soft to palpation, nontender and no guarding Auscultation: normal bowel sounds General: Yes no CVA tenderness Back/Spine/Pelvis Back: no CVA tenderness and No back tenderness Skin General skin exam: no rashes or lesions noted Neuro General: patient oriented x3, gait normal, moves all extremities and no focal motor deficits Cranial nerves: Yes Equal, round and reactive pupils present Extrem General: Yes full ROM, Yes no joint enlargement, Yes no pedal edema and Yes normal gait Psych Appearance: grossly normal and well kempt Mental Status: mental status grossly normal Affect: normal affect Thought process: Normal thought process present Thought content: Normal thought content present Results AMB Hemoglobin A1c AMB Hemoglobin A1c 8.7 % Last Edit by Mimi Wilson CMA on 11/25/24 08:25 Coding Level of Care Code Est Pt Level 4 (82651) Complex EM visit Add On G2211 Diagnoses Elevated PSA R97.20 Diabetes mellitus with hyperglycemia, without long-term current use of insulin E11.65 Essential hypertension I10 Tubular adenoma of colon D12.6 Pure hypercholesterolemia E78.00 Hyperlipidemia type: pure hypercholesterolemia Glaucoma, unspecified glaucoma type, unspecified laterality H40.9 Glaucoma type: unspecified Laterality: unspecified laterality Coronary artery disease involving [place] coronary artery of [place] heart without angina pectoris I25.10 Coronary Disease-Associated Artery/Lesion type: [place] artery [place] vs. transplanted heart: [place] heart Associated angina: without angina Assessment & Plan Assessment & Plan (1) Elevated PSA: Code(s): R97.20 - Elevated prostate specific antigen [PSA] Category: Medical Plan: Referred to urology for further evaluation management (2) Diabetes mellitus with hyperglycemia, without long-term current use of insulin: Code(s): E11.65 - Type 2 diabetes mellitus with hyperglycemia Category: Medical Plan: Diabetes mellitus poorly controlled with hemoglobin A1c at 8.7%. Continue with metformin and Jardiance at the same dose, declined starting any new medication at present time, states that he has been in discrete with his diet and will corrected, advise also to do moderate intensity exercise for at least 30 minutes 3 to 4 times a week. Reminded to get his diabetes eyes exam, also has history of glaucoma, advised to check with [facility] to see if they are taking new patients. (3) Essential hypertension: Code(s): I10 - Essential (primary) hypertension Category: Medical Plan: Blood pressure at goal of less than 130/80. Continue with carvedilol and lisinopril-HCTZ Reinforced importance of following a low sodium diet, getting regular exercise, and lowering stress levels. (4) Tubular adenoma of colon: Code(s): D12.6 - Benign neoplasm of colon, unspecified Category: Medical Plan: Stressed importance having a repeat colonoscopy done, but patient declined referral at this time. Will revisit this on his next appointment in February (5) Hyperlipidemia: Code(s): E78.5 - Hyperlipidemia, unspecified Category: Medical Qualifiers: Hyperlipidemia type: pure hypercholesterolemia Qualified Code(s): E78.00 - Pure hypercholesterolemia, unspecified Plan: Reminded to get his fasting labs done. Continued on atorvastatin 80 mg daily and reinforced importance of following a healthy diet and getting regular exercise (6) Glaucoma: Code(s): H40.9 - Unspecified glaucoma Category: Medical Qualifiers: Glaucoma type: unspecified Laterality: unspecified laterality Qualified Code(s): H40.9 - Unspecified glaucoma Plan: Patient advised to schedule an appointment with an senior java ui developer for follow- up, advised to check with [facility] if taking new patient (7) Coronary artery disease: Code(s): I25.10 - Atherosclerotic heart disease of [place] coronary artery without angina pectoris Category: Medical Qualifiers: Coronary Disease-Associated Artery/Lesion type: [place] artery [place] vs. transplanted heart: [place] heart Associated angina: without angina Qualified Code(s): I25.10 - Atherosclerotic heart disease of [place] coronary artery without angina pectoris Plan: Continue 325 mg daily of aspirin. Advised to see his survey researcher once a year but patient declined, states that he feels fine with no complaints of any chest pain shortness of breath or lightheadedness Orders: Orders AMB Hemoglobin A1c Today E11.65 - Type 2 diabetes mellitus with hyperglycemia Referrals Urology Referral R97.20 - Elevated prostate specific antigen [PSA] Medications: Refilled atorvastatin 80 mg PO DAILY 90 tabs 2RF E11.9 - Type 2 diabetes mellitus without complications, E78.5 - Hyperlipidemia, unspecified, I10 - Essential (primary) hypertension, I25.10 - Atherosclerotic heart disease of [place] coronary artery without angina pectoris, I25.2 - Old myocardial infarction, Z95.5 - Presence of coronary angioplasty implant and graft carvedilol 25 mg PO BID 90 days 180 tabs 4RF I10 - Essential (primary) hypertension Jardiance (empagliflozin) 25 mg PO QAM 90 tabs 4RF NS metformin 1,000 mg PO BID 90 days 180 tabs 4RF E11.9 - Type 2 diabetes mellitus without complications lisinopril-hydrochlorothiazide 20-12.5 mg 2 tabs PO DAILY 90 days 180 tabs 4RF I10 - Essential (primary) hypertension
== END 2024-11-25 08:32 | disposition home or self-care (01) ==
LOC: HO.HMCC 07:43
PROVIDERS: PCP Internal Medicine; Visit Provider Internal Medicine
DX: R97.20 Elevated prostate specific antigen [PSA] (principal); E11.65 Type 2 diabetes mellitus with hyperglycemia; I10 Essential (primary) hypertension; D12.6 Benign neoplasm of colon, unspecified; E78.00 Pure hypercholesterolemia, unspecified; H40.9 Unspecified glaucoma; I25.10 Atherosclerotic heart disease of native coronary artery without angina pectoris

== ENCOUNTER 2024-11-25 07:42 | Outpatient (REF) | payer MEDICARE, SELFPAY ==
--- OUTSIDE RECORDS SUMMARY | 2024-11-25 08:45 | XMS_ITS | Clinical Summary ---
Author Organization [facility] Address [address] [place] [address] Care Team Providers Care Validation Intern Name Role Phone Unavailable Primary Care Provider [...]
[2024-11-25 11:16] LABS: Alanine Aminotransferase 17 U/L (0-40); Anion Gap 12 (12-20); Aspartate Amino Transferase 25 U/L (5-37); Blood Urea Nitrogen 16 mg/dL (9-16); Calcium 9.3 mg/dL (8.4-10.2); Carbon Dioxide 27 mmol/L (22-29); Chloride 105 mmol/L (96-108); Cholesterol 129 mg/dL (<200); Estimated Glomerular Filt Rate > 60; Glucose Fasting 165 mg/dL (60-99); HDL Cholesterol 44 mg/dL (>40); LDL Cholesterol Calculated 64 mg/dL (<100); Potassium 4.1 mmol/L (3.3-5.1); Sodium 140 mmol/L (135-145); Triglycerides 107 mg/dL (<150)
== END 2024-11-25 07:43 | disposition home or self-care (01) ==
LOC: HO.HMGCLDS 07:42
PROVIDERS: PCP Internal Medicine; Visit Provider Internal Medicine
DX: R97.20 Elevated prostate specific antigen [PSA] (principal); E11.65 Type 2 diabetes mellitus with hyperglycemia; I10 Essential (primary) hypertension; E78.00 Pure hypercholesterolemia, unspecified; I25.10 Atherosclerotic heart disease of native coronary artery without angina pectoris; D12.6 Benign neoplasm of colon, unspecified; H40.9 Unspecified glaucoma
CPT/HCPCS: 36415; 80048; 80061; 83036; 84450; 84460; 99212

== ENCOUNTER 2025-02-22 08:06 | Outpatient (REF) | payer MEDICARE, SELFPAY ==
--- OUTSIDE RECORDS SUMMARY | 2025-02-22 08:12 | XMS_ITS | Clinical Summary ---
Author Organization [facility] Address [address] [place] [address] Care Team Providers Care Slusher Operator Name Role Phone Unavailable Primary Care Provider [...] Vaccines (1 of 2) 2002 COVID-19 Vaccine (1 - 2023-2 5 season) 2024 Influenza Vaccine (#1) 2025 RSV Immunization Adult Patie nts (1 [...]
[2025-02-22 10:47] LABS: MANUAL DIFF FLAG NO
[2025-02-22 11:02] LABS: Hematocrit 43.0 % (42.0-52.0); Hemoglobin 13.5 g/dl (14.0-18.0); Imm Gran Abs Auto 0.01 X10*3/uL (0.00-0.03); Imm Gran Pct Auto 0.2 % (0.0-0.4); Lymphocytes Absolute Auto 2.7 X10*3/uL (1.2-4.9); Mean Corpuscular HGB Conc 31.4 g/dl (31.0-36.0); Mean Corpuscular Hemoglobin 26.6 pg (27.0-33.0); Mean Corpuscular Volume 84.6 fL (80.0-98.0); NRBC Abs Auto 0.000 X10*3/uL (0.0-0.012); NRBC Pct Auto 0.0 /100WBC (0.0-0.2); Platelet Count 157 X10*3/uL (160-400); Red Blood Count 5.08 X10*6/uL (4.60-5.80); White Blood Count 5.8 X10*3/uL (4.8-10.8)
[2025-02-22 11:07] LABS: Hemoglobin A1C 235.1328 umol/L; Total Hemoglobin (HGBA1C) 3482.1811 umol/L
[2025-02-22 12:28] LABS: Anion Gap 12 (12-20)
[2025-02-22 12:34] LABS: Alanine Aminotransferase 19 U/L (0-40); Albumin Level 4.1 g/dL (3.5-5.0); Alkaline Phosphatase 58 U/L (39-117); Aspartate Amino Transferase 28 U/L (5-37); Blood Urea Nitrogen 18 mg/dL (9-16); Calcium 9.4 mg/dL (8.4-10.2); Carbon Dioxide 27 mmol/L (22-29); Chloride 107 mmol/L (96-108); Cholesterol 136 mg/dL (<200); Estimated Glomerular Filt Rate > 60; HDL Cholesterol 42 mg/dL (>40); Potassium 4.6 mmol/L (3.3-5.1); Sodium 141 mmol/L (135-145); Total Protein 7.2 g/dL (6.5-8.0); Triglycerides 98 mg/dL (<150)
[2025-02-22 14:50] LABS: Microalbum/Creatinine Ratio Ur 46.6 ug/mg cr (<30)
== END 2025-02-22 08:07 | disposition home or self-care (01) ==
LOC: HO.HMGCLDS 08:06
PROVIDERS: PCP Internal Medicine; Visit Provider Internal Medicine
DX: E11.65 Type 2 diabetes mellitus with hyperglycemia (principal); I25.2 Old myocardial infarction; E78.00 Pure hypercholesterolemia, unspecified; D12.6 Benign neoplasm of colon, unspecified; I10 Essential (primary) hypertension
CPT/HCPCS: 36415; 80053; 80061; 82043; 82306; 82570; 83036; 85025